=== PATIENT | male | born 1990 | race Two or more races ===

== ENCOUNTER 2022-07-24 16:34 | Observation (INO) ==
--- NOTE | 2022-07-24 17:16 | DR.GENAD ---
HPI Time Seen Time Seen by Provider: 07/24/22 17:16 PCP Primary Care Physician: quinton Complaint/Symptoms Chief Complaint:: PT STATES HE IS HAVING PAIN IN THE RUQ TO MID ABDOMEN. STARTED AT 6AM. PAIN FEELS LIKE A CRAMP AND IT IS VERY STRONG. PT LAST BM WAS TODAY AND VOMITTED ALSO. Mode of Arrival Mode of Arrival: Ambulatory Timing Onset of Chief Complaint: 07/24/22 PMH PMH Past Medical History: No Past Surgical History: Yes Surgical History: Appendectomy Family History History of Family Medical Conditions: No Social History Does patient currently use any type of tobacco product: No Have you used tobacco products in the last 12 months: No Type of Tobacco Use: None Does any household member use tobacco: No Alcohol Use: Rarely Do you use any recreational Drugs:: No Lives With: Alone Lives Where: Home Infectious screening In the last 2 months have you had wt loss of >10#?: NO Have you had fever, night sweats or hemotysis?: No Have you traveled outside the country in the last 6 months?: No Isolation: Standard PE Vital Signs Vitals: Temperature 98.6 F Pulse Rate 76 Respiratory Rate 20 Blood Pressure 131/80 O2 Sat by Pulse Oximetry 99 ROR Labs Reviewed Result Diagrams: 07/24/22 17:28 07/24/22 17:28 Laboratory: WBC 7.3 X10^3/uL (3.6-10.0) 07/24/22 17:28 RBC 4.92 X10^6/uL (4.7-6.0) 07/24/22 17:28 Hgb 15.1 g/dL (13.5-18.0) 07/24/22 17:28 Hct 44.3 % (42.0-54.0) 07/24/22 17:28 MCV 90.0 fL (80.0-100.0) 07/24/22 17:28 MCH 30.7 pg (27.0-34.0) 07/24/22 17:28 MCHC 34.1 g/dL (33.0-35.0) 07/24/22 17:28 RDW 13.7 % (11.6-16.5) 07/24/22 17:28 Plt Count 241 X10^3/uL (150.0-450.0) 07/24/22 17:28 MPV 7.6 fL (7.4-11.0) 07/24/22 17: Neut % (Auto) 64.4 % (42.0-75.0) 07/24/22: Lymph % (Auto) 23.3 % (21.0-51.0) 07/24/22: [place] % (Auto) 10.2 % (0.0-13.0) 07/24/22: Eos % (Auto) 0.6 % (0.9-2.9) L 07/24/22 17: Baso % (Auto) 1.5 % (0.2-1.0) H 07/24/22: Neut # (Auto) 4.7 x10^3/uL (2.2-4.8) 07/24/22: Lymph # (Auto) 1.7 X10^3/uL (1.3-2.9) 07/24/22: [place] # (Auto) 0.7 x10^3/uL (0.3-0.8) 07/24/22 17: Eos # (Auto) 0.0 x10^3/uL (0.0-0.2) 07/24/22: Baso # (Auto) 0.1 X10^3/uL (0.0-0.1) 07/24/22: Absolute Nucleated RBC 0.0 /100WBC 07/24/22 17: Sodium 139 mmol/L (136-145) 07/24/22 17: Corrected Sodium TNP 07/24/22: Potassium 3.2 mmol/L (3.5-5.1) L 07/24/22: Chloride 101 mmol/L (98-107) 07/24/22: Carbon Dioxide 27.1 mmol/L (21-32) 07/24/22: BUN 6 mg/dL (7-18) L 07/24/22 17: Creatinine 0.89 mg/dL (0.70-1.30) 07/24/22 17: Est GFR (MDRD) Af Amer > 60 (>60) 07/24/22 17: Est GFR (MDRD) Non-Af > 60 (>60) 07/24/22 17:28 Glucose 107 mg/dL (65-99) H 07/24/22 17:28 Calcium 8.0 mg/dL (8.5-10.1) L 07/24/22 17:28 Corrected Calcium TNP 07/24/22 17:28 Total Bilirubin 0.30 mg/dL (0.2-1.0) 07/24/22 17:28 AST 24 Units/L (15-37) 07/24/22 17:28 ALT 30 Units/L (12-78) 07/24/22 17:28 Alkaline Phosphatase 53 Units/L (46-116) 07/24/22 17:28 Total Protein 7.4 g/dL (6.4-8.2) 07/24/22 17:28 Albumin 3.7 g/dL (3.4-5.0) 07/24/22 17:28 Globulin 3.7 g/dL (2.5-4.5) 07/24/22 17:28 Albumin/Globulin Ratio 1.0 Ratio (1.1-2.1) L 07/24/22 17:28 Amylase 35 Units/L (25-115) 07/24/22 17:28 Lipase 100 Units/L (73-393) 07/24/22 17:28 Specimen Type Clean catch urine 07/24/22 18:39 Urine Color Yellow (YELLOW) 07/24/22 18:39 Urine Appearance Clear (CLEAR) 07/24/22 18:39 Urine pH 6.0 (5.0 - 8.0) 07/24/22 18:39 Ur Specific [place] 1.025 (1.000-1.030) 07/24/22 18:39 Urine Protein 2+ (NEGATIVE) 07/24/22 18:39 Urine Glucose (UA) Negative (NEGATIVE) 07/24/22 18:39 Urine Ketones 3+ (NEGATIVE) 07/24/22 18:39 Urine Blood 1+ (NEGATIVE) 07/24/22 18:39 Urine Nitrite Negative (NEGATIVE) 07/24/22 18:39 Urine Bilirubin Negative (NEGATIVE) 07/24/22 18:39 Urine Urobilinogen 1+ (NORMAL) 07/24/22 18:39 Ur Leukocyte Esterase Negative (NEGATIVE) 07/24/22 18:39 Urine RBC 0-2 /HPF (0-3) 07/24/22 18:39 Urine WBC 0-2 /HPF (0-5) 07/24/22 18:39 Ur Squamous Epith Cells Rare /HPF (NEGATIVE) 07/24/22 18:39 Urine Bacteria Negative /HPF (NEGATIVE) 07/24/22 18:39 Urine Mucus Moderate /HPF (NEGATIVE) 07/24/22 18:39 Ur Culture Indicated? No/not indicated 07/24/22 18:39 Opioid Opioid Risk Tool Total: 0 Total Score Risk Category: Low Risk Copyright: Trent PAN predicting aberrant behaviors Discharge Plan Diagnosis Discharge Problem: Gall bladder disease, Abdominal pain, Hypokalemia, Pneumonia Discharge Plan Patient Disposition: ADMITTED INPATIENT Condition: Stable Prescription drug monitoring program results: PDMP was not reviewed Discharge Comment: RETURN TO ER IF WORSE. Orders to Discharge Patient Discharge Orders: Discharge (Routine); Ordered 07/27/22 Ordered By: Balwinder Mccarthy
[2022-07-24] MEDS ORDERED: NS 1,000 ML IV 1,000 ML IV ONE (17:19)
[2022-07-24] MEDS ORDERED: ZOFRAN INJ 4 MG VIAL IVP ONE (17:19)
[2022-07-24] MEDS ORDERED: ZOFRAN INJ 4 MG VIAL ONE (17:20)
[2022-07-24] MEDS ORDERED: NS 1,000 ML IV 1,000 ML ONE (17:21)
[2022-07-24] MEDS ORDERED: PEPCID 20 MG VIAL 20 MG in NS 50 ML IV 50 ML IV ONE (17:24)
[2022-07-24 17:37] LABS: BASOPHILS # (AUTO) 0.1 X10^3/uL (0.0-0.1); BASOPHILS % (AUTO) 1.5 % (0.2-1.0); EOSINOPHILS % (AUTO) 0.6 % (0.9-2.9); HEMATOCRIT 44.3 % (42.0-54.0); HEMOGLOBIN 15.1 g/dL (13.5-18.0); LYMPHOCYTES # (AUTO) 1.7 X10^3/uL (1.3-2.9); LYMPHOCYTES % (AUTO) 23.3 % (21.0-51.0); MEAN CORPUSCULAR HEMOGLOBIN 30.7 pg (27.0-34.0); MEAN CORPUSCULAR HGB CONC 34.1 g/dL (33.0-35.0); MEAN PLATELET VOLUME 7.6 fL (7.4-11.0); MONOCYTES # (AUTO) 0.7 x10^3/uL (0.3-0.8); MONOCYTES % (AUTO) 10.2 % (0.0-13.0); NEUTROPHILS # (AUTO) 4.7 x10^3/uL (2.2-4.8); NEUTROPHILS % (AUTO) 64.4 % (42.0-75.0); RED BLOOD COUNT 4.92 X10^6/uL (4.7-6.0); RED CELL DISTRIBUTION WIDTH 13.7 % (11.6-16.5); WHITE BLOOD COUNT 7.3 X10^3/uL (3.6-10.0)
[2022-07-24] MEDS ORDERED: PEPCID 20 MG VIAL ONE (17:37)
[2022-07-24] MEDS ORDERED: NS 50 ML IV 50 ML IV ONE (17:37)
[2022-07-24 17:49] LABS: ALANINE AMINOTRANSFERASE 30 Units/L (12-78); ALBUMIN 3.7 g/dL (3.4-5.0); ALKALINE PHOSPHATASE 53 Units/L (46-116); ASPARTATE AMINO TRANSFERASE 24 Units/L (15-37); BLOOD UREA NITROGEN 6 mg/dL (7-18); CARBON DIOXIDE 27.1 mmol/L (21-32); CHLORIDE 101 mmol/L (98-107); CREATININE 0.89 mg/dL (0.70-1.30); SODIUM 139 mmol/L (136-145); TOTAL PROTEIN 7.4 g/dL (6.4-8.2); eGFR NON BLACK RACES > 60 (>60)
[2022-07-24] MEDS ORDERED: MORPHINE SULFATE INJ 4 MG IVP ONE (18:02)
[2022-07-24] MEDS ORDERED: MORPHINE SULFATE INJ 4 MG ONE (18:04)
[2022-07-24] MEDS ORDERED: PHENERGAN INJ 25 MG IM ONE ×2 (18:09→18:10)
[2022-07-24 19:03] LABS: BILIRUBIN,URINE NEGATIVE (NEGATIVE); BLOOD/HEMOGLOBIN,URINE 1+ (NEGATIVE); GLUCOSE, URINE NEGATIVE (NEGATIVE); KETONES,URINE 3+ (NEGATIVE); LEUKOCYTE ESTERASE ,URINE NEGATIVE (NEGATIVE); NITRITES,URINE NEGATIVE (NEGATIVE); PROTEIN,URINE 2+ (NEGATIVE); UROBILINOGEN,URINE 1+ (NORMAL)
[2022-07-24 19:10] LABS: APPEARANCE,URINE CLEAR (CLEAR); COLOR,URINE YELLOW (YELLOW)
[2022-07-24 19:11] LABS: BACTERIA,URINE NEGATIVE /HPF (NEGATIVE); RBC,URINE 0-2 /HPF (0-3); SQUAMOUS EPITHELIAL CELL,UR RARE /HPF (NEGATIVE)
[2022-07-24] MEDS ORDERED: LEVSIN/MAALOX/LIDOC VISC ONE (19:20)
[2022-07-24] MEDS ORDERED: LEVSIN/MAALOX/LIDOC VISC PO ONE (19:21)
[2022-07-24 19:31] LABS: AMYLASE 35 Units/L (25-115); LIPASE 100 Units/L (73-393)
--- NOTE | 2022-07-24 20:41 | CT ---
EXAM: CT ABDOMEN AND PELVIS WITHOUT INTRAVENOUS CONTRASTHISTORY: Right upper quadrant to midline abdominal pain. Vomiting.TECHNIQUE: Spiral axial CT images are obtained through the abdomen and pelvis without the administration of intravenous contrast. Additional coronal and sagittal reformatted images are reconstructed.DOSIMETRY: Total DLP 234.72 mGycm; CTDI 5.28 mGyCOMPARISON: None available.FINDINGS:GASTROINTESTINAL TRACT: There is no evidence for hiatal hernia, bowel herniation, bowel obstruction, appendicitis, colitis or diverticulitis.GENITOURINARY SYSTEM: The kidneys are unremarkable. There is no ureteral calculus or stigmata of obstructive uropathy. The urinary bladder, seminal vesicles, prostate gland appear grossly unremarkable for a non-dedicated exam.BILIARY SYSTEM: Dilated gallbladder with questionable gallbladder wall thickening and pericholecystic stranding; nonspecific finding which may represent sequela of NPO status and/or cholecystitis in the appropriate clinical setting. Consider follow-up evaluation with ultrasound and/or HIDA scan to rule out acute gallbladder disease if clinically warranted.CT ABDOMEN: The liver, spleen, pancreas, adrenal glands, aorta, and inferior vena cava are within normal limits for a noncontrast CT scan. There is no intra-abdominal or retroperitoneal lymphadenopathy, free fluid, or free air seen. No abdominal herniation is noted.CT PELVIS: No pelvic sidewall or inguinal lymphadenopathy is seen. No inguinal herniation is noted. No free fluid or free air is seen.BONES AND JOINTS: The visualized bony structures are within normal limits.LUNG BASES: There is mild patchy groundglass parenchymal infiltrate in the posterior left upper lobe (partially imaged) in keeping with mild acute pneumonia in the appropriate clinical setting. Axial image 1?8, series 3, lung windows. The lung bases are otherwise clear.IMPRESSION:1. Dilated gallbladder with questionable gallbladder wall thickening and pericholecystic stranding; nonspecific finding which may represent sequela of NPO status and/or cholecystitis in the appropriate clinical setting. Consider follow-up evaluation with ultrasound and/or HIDA scan to rule out acute gallbladder disease if clinically warranted.2. No evidence for renal stone disease or obstructive uropathy.3. No evidence for acute appendicitis, bowel herniation/obstruction, colitis or diverticulitis seen.4. No free fluid, free air, mass lesions, or lymphadenopathy seen.5. Mild patchy groundglass parenchymal infiltrate in the posterior left upper lobe (partially imaged) in keeping with mild acute pneumonia in the appropriate clinical setting. Axial image 1?8, series 3, lung windows.Electronically signed by: Cam Elias (Jul 24, 2022 20:40:07)
[2022-07-24] MEDS ORDERED: TORADOL 30 MG VIAL IVP ONE (21:26)
[2022-07-24] MEDS ORDERED: TORADOL 30 MG VIAL ONE (21:37)
[2022-07-24] MEDS ORDERED: K-DUR TAB 20 MEQ PO ONE ×2 (21:37→21:39)
[2022-07-24 23:48] VITALS: BMI 32.8
[2022-07-25] MEDS: LR 1,000 ML IV 1,000 ML IV SCH ×4 (00:35→19:41)
[2022-07-25] MEDS: XOPENEX 1.25 MG/3 ML NEBULE NEB SCH ×4 (09:19→21:07)
--- NOTE | 2022-07-25 09:49 | DR.H&P ---
H&P History & Physical for Day of: H&P Date: 07/24/22 Chief Complaint Chief Complaint: acute onset RUQ pain Allergies Allergies Allergy/AdvReac Type Severity Reaction Status Date / Time Penicillins Allergy Verified 07/24/22 18:09 History of Present Illness History of Present Illness: 32 yo male, non Finnish speaking , with acute onset of RUQ pain. Evaluated in the ER and had CT of abdomen showing distended gallbladder , with question of gallbladder wall thickening and question of pericholecystic fluid . Past Surgical History Surgical History: Appendectomy Social History Does patient currently use any type of tobacco product: Yes Have you used tobacco products in the last 12 months: No Type of Tobacco Use: Cigars Does any household member use tobacco: No Alcohol Use: Occasionally Drug Use: None Medications Home Medications: Penicillins Allergy (Verified 07/24/22 18:09) New Prescriptions ciprofloxacin HCl 500 mg tablet (Cipro) 500 mg PO BID #20 tabs 07/24/22 [Rx] ketorolac 10 mg tablet 10 mg PO QID 5 days #20 tabs 07/24/22 [Rx] ondansetron 4 mg disintegrating tablet 4 mg PO Q8H PRN nausea and vomiting #15 tabs 07/24/22 [Rx] Labs Result Diagrams: 07/24/22 17:28 07/24/22 17:28 Labs: Laboratory WBC 7.3 X10^3/uL (3.6-10.0) 07/24/22 17:28 RBC 4.92 X10^6/uL (4.7-6.0) 07/24/22 17:28 Hgb 15.1 g/dL (13.5-18.0) 07/24/22 17:28 Hct 44.3 % (42.0-54.0) 07/24/22 17:28 MCV 90.0 fL (80.0-100.0) 07/24/22 17:28 MCH 30.7 pg (27.0-34.0) 07/24/22 17: MCHC 34.1 g/dL (33.0-35.0) 07/24/22 17:28 RDW 13.7 % (11.6-16.5) 07/24/22 17:28 Plt Count 241 X10^3/uL (150.0-450.0) 07/24/22: MPV 7.6 fL (7.4-11.0) 07/24/22: Neut % (Auto) 64.4 % (42.0-75.0) 07/24/22: Lymph % (Auto) 23.3 % (21.0-51.0) 07/24/22: [place] % (Auto) 10.2 % (0.0-13.0) 07/24/22: Eos % (Auto) 0.6 % (0.9-2.9) L 07/24/22: Baso % (Auto) 1.5 % (0.2-1.0) H 07/24/22: Neut # (Auto) 4.7 x10^3/uL (2.2-4.8) 07/24/22 Lymph # (Auto) 1.7 X10^3/uL (1.3-2.9) 07/24/22: [place] # (Auto) 0.7 x10^3/uL (0.3-0.8) 07/24/22: Eos # (Auto) 0.0 x10^3/uL (0.0-0.2) 07/24/22: Baso # (Auto) 0.1 X10^3/uL (0.0-0.1) 07/24/22: Absolute Nucleated RBC 0.0 /100WBC 07/24/22: Sodium 139 mmol/L (136-145) 07/24/22: Corrected Sodium TNP 07/24/22: Potassium 3.2 mmol/L (3.5-5.1) L 07/24/22: Chloride 101 mmol/L (98-107) 07/24/22: Carbon Dioxide 27.1 mmol/L (21-32) 07/24/22: BUN 6 mg/dL (7-18) L 07/24/22: Creatinine 0.89 mg/dL (0.70-1.30) 07/24/22: Est GFR (MDRD) Af Amer > 60 (>60) 07/24/22: Est GFR (MDRD) Non-Af > 60 (>60) 07/24/22 17:28 Glucose 107 mg/dL (65-99) H 07/24/22 17:28 Calcium 8.0 mg/dL (8.5-10.1) L 07/24/22 17:28 Corrected Calcium TNP 07/24/22 17:28 Total Bilirubin 0.30 mg/dL (0.2-1.0) 07/24/22 17:28 AST 24 Units/L (15-37) 07/24/22 17:28 ALT 30 Units/L (12-78) 07/24/22 17:28 Alkaline Phosphatase 53 Units/L (46-116) 07/24/22 17:28 Total Protein 7.4 g/dL (6.4-8.2) 07/24/22 17:28 Albumin 3.7 g/dL (3.4-5.0) 07/24/22 17:28 Globulin 3.7 g/dL (2.5-4.5) 07/24/22 17:28 Albumin/Globulin Ratio 1.0 Ratio (1.1-2.1) L 07/24/22 17:28 Amylase 35 Units/L (25-115) 07/24/22 17:28 Lipase 100 Units/L (73-393) 07/24/22 17:28 Specimen Type Clean catch urine 07/24/22 18:39 Urine Color Yellow (YELLOW) 07/24/22 18:39 Urine Appearance Clear (CLEAR) 07/24/22 18:39 Urine pH 6.0 (5.0 - 8.0) 07/24/22 18:39 Ur Specific [place] 1.025 (1.000-1.030) 07/24/22 18:39 Urine Protein 2+ (NEGATIVE) 07/24/22 18:39 Urine Glucose (UA) Negative (NEGATIVE) 07/24/22 18:39 Urine Ketones 3+ (NEGATIVE) 07/24/22 18:39 Urine Blood 1+ (NEGATIVE) 07/24/22 18:39 Urine Nitrite Negative (NEGATIVE) 07/24/22 18:39 Urine Bilirubin Negative (NEGATIVE) 07/24/22 18:39 Urine Urobilinogen 1+ (NORMAL) 07/24/22 18:39 Ur Leukocyte Esterase Negative (NEGATIVE) 07/24/22 18:39 Urine RBC 0-2 /HPF (0-3) 07/24/22 18:39 Urine WBC 0-2 /HPF (0-5) 07/24/22 18:39 Ur Squamous Epith Cells Rare /HPF (NEGATIVE) 07/24/22 18:39 Urine Bacteria Negative /HPF (NEGATIVE) 07/24/22 18:39 Urine Mucus Moderate /HPF (NEGATIVE) 07/24/22 18:39 Ur Culture Indicated? No/not indicated 07/24/22 18:39 Review of Systems Constitutional: See HPI Eyes: No Symptoms Reported ENT: No Symptoms Reported Respiratory: No Symptoms Reported Cardiovascular: No Symptoms Reported Gastrointestinal: See HPI Genitourinary: No Symptoms Reported Musculoskeletal: No Symptoms Reported Skin: No Symptoms Reported Neurological: No Symptoms Reported Physical Exam Vital Signs: Temperature 98.7 F Pulse Rate [Left Radial] 60 Pulse Rate 76 Respiratory Rate 20 Blood Pressure [Left Arm] 119/62 Blood Pressure 131/80 O2 Sat by Pulse Oximetry 99 Oriented: Normal, Time, Person and Place Eyes: Normal Ear: Normal Nose: Normal Throat: Normal Respiratory: Clear Throughout Cardiovascular: Normal : Normal Auscultation: Bowel Sounds: Normal Palpation: Normal Tenderness: RUQ Skin: Normal Musculoskeletal: Normal Psychiatric: Normal Mood Description: Anxious Affect: Normal Speech Pattern: Clear (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 (2) Abdominal pain: Status: Acute Review H&P Reviewed: Yes Patient was examined?: Yes
[2022-07-25] MEDS: CIPRO IV 400 MG PREMIX* 400 MG/200 ML IV.SOLN. IV SCH ×2 (10:03→20:29)
[2022-07-25] MEDS ORDERED: PROTONIX TAB 40 MG PO ONE (20:07)
--- NOTE | 2022-07-25 20:07 | NOTE.SOAP ---
Soap Note Note for Day of Date of Exam: 07/25/22 Subjective Data Subjective Data: Patient with acute onset RUQ pain. CT consistent with cholecystitis. Feels better today Objective Data Temperature: 97.7 F Pulse Rate: 65 Respiratory Rate: 20 Blood Pressure: 101/50 O2 Sat by Pulse Oximetry: 100 Objective Data: Abdomen much less tender today Assessment Assessment: cholecystitis Plan Plan: laparoscopic cholecystectomy tomorrow. Procedure and risks discussed using an full time staff interpreter. Her agrees to proceed.
[2022-07-26] MEDS: LR 1,000 ML IV 1,000 ML IV SCH ×4 (03:14→17:18)
[2022-07-26] MEDS: XOPENEX 1.25 MG/3 ML NEBULE NEB SCH ×4 (08:38→17:00)
[2022-07-26] MEDS ORDERED: VERSED ONE (13:52)
[2022-07-26] MEDS ORDERED: FENTANYL VIAL INJ 100 mcg ONE (13:52)
[2022-07-26] MEDS ORDERED: CIPRO IV 400 MG PREMIX* 400 MG/200 ML IV.SOLN. IV ONE (13:52)
[2022-07-26] MEDS ORDERED: LR 1,000 ML IV 1,000 ML IV ONE (13:52)
[2022-07-26] MEDS ORDERED: PEPCID 20 MG VIAL ONE (13:53)
[2022-07-26] MEDS ORDERED: ZOFRAN INJ 4 MG VIAL ONE (13:53)
[2022-07-26] MEDS ORDERED: REGLAN INJ 10 MG VIAL ONE (13:53)
[2022-07-26] MEDS ORDERED: BRIDION ONE (13:54)
[2022-07-26] MEDS ORDERED: DIPRIVAN VIAL 20 ML ONE (13:54)
[2022-07-26] MEDS ORDERED: OFIRMEV IV 1000 MG VIAL 1,000 MG/100 ML VIAL IV ONE (13:54)
[2022-07-26] MEDS ORDERED: ZEMURON 100 MG VIAL ONE (13:54)
[2022-07-26] MEDS ORDERED: TORADOL 30 MG VIAL ONE (13:54)
[2022-07-26] MEDS ORDERED: XYLOCAINE 2 % (PLAIN) ONE (14:03)
[2022-07-26] MEDS ORDERED: BACTROBAN TOPICAL OINT ONE (14:03)
[2022-07-26] MEDS ORDERED: NS 1,000 ML IV 0 ML ONE (14:03)
[2022-07-26] MEDS ORDERED: SUPRANE ONE ×2 (14:21→15:50)
[2022-07-26] MEDS ORDERED: MARCAINE/EPINEPHRINE ONE (14:42)
--- NOTE | 2022-07-26 15:32 | OR.IMMED ---
IMMEDIATE POST-OP NOTE Immediate Post-Op Note Pre-Op Diagnosis: cholecystitis Post-Op Diagnosis: same Procedure: laparoscopic cholecystectomy Description of Procedure: see operative summary Surgeon/Powdered Metal Supervisor: Shari Findings: cholecystitis Estimated Blood Loss: < 50 cc Complications: none Progress Notes: Return to floor with JEANETTE drain in place, change IV Cipro to po Cipro, resume diet. probably discharge home tomorrow. Final Diagnosis: as above
[2022-07-26] MEDS ORDERED: BENADRYL INJ 50 MG VIAL IVP PRN (15:55)
[2022-07-26] MEDS ORDERED: DILAUDID INJ IVP PRN (15:55)
[2022-07-26] MEDS ORDERED: ZOFRAN INJ 4 MG VIAL IVP PRN (15:55)
[2022-07-26] MEDS ORDERED: REGLAN INJ 10 MG VIAL IVP PRN (15:55)
[2022-07-26] MEDS ORDERED: BARHEMSYS INJ IVP PRN (15:55)
[2022-07-26] MEDS: DILAUDID INJ IVP PRN ×2 (16:46→21:05)
[2022-07-26] MEDS: K-DUR TAB 20 MEQ PO PRN (20:55)
[2022-07-26] MEDS: CIPRO TAB 500 MG PO SCH (20:55)
[2022-07-27] MEDS: LR 1,000 ML IV 1,000 ML IV SCH ×2 (01:27→12:56)
[2022-07-27] MEDS ORDERED: ZOFRAN INJ 4 MG VIAL IVP PRN (04:14)
[2022-07-27] MEDS: DILAUDID INJ IVP PRN (04:30)
[2022-07-27] MEDS: CIPRO TAB 500 MG PO SCH (08:45)
[2022-07-27] MEDS: K-DUR TAB 20 MEQ PO PRN (09:15)
[2022-07-27] MEDS: XOPENEX 1.25 MG/3 ML NEBULE NEB SCH ×2 (09:28→13:14)
--- NOTE | 2022-07-27 11:19 | W.DIS.FURT ---
Summary of Discharge Discharge Summary of Date Date of Exam: 07/27/22 Admission Date Date of Admission: 07/24/22 Admission Diagnosis Patient Problems (Updated 07/24/22 @ 21:40 by LYUBOV CAMARILLO) Gall bladder disease (Acute) K82.9 Abdominal pain (Acute) R10.9 Hypokalemia (Acute) E87.6 Pneumonia (Acute) J18.9 Hospital Course: 32 year old male who presented to the emergency room on the date of admission ,July 24, complaining of right upper quadrant pain. He was evaluated in the emergency room and CT scan was consistent with cholecystitis with gallbladder wall thickening and question of sanjuanita- cholecystic fluid . he was started on IV antibiotics. On July 26 he underwent uncomplicated laparoscopic cholecystectomy. He had evidence of cholecystitis. He has a Win Lai drain in place. He be discharged home with the drain in place. He will be instructed how to care for the drain . He will be on Percocet 5 mg tablets, one every six hours PRN pain and Cipro, one capsule BID. He will follow up with me in one week. Vital Signs: Vital Signs (72 hours) 07/25/22 20:07 07/24/22 16:38 07/24/22 18:14 Temperature 97.7 F 98.6 F Pulse Rate 65 76 Pulse Rate [Left Radial] Respiratory Rate 20 22 20 Blood Pressure 101/50 131/80 Blood Pressure [Left Arm] Blood Pressure [Right Arm] O2 Sat by Pulse Oximetry 100 99 Oxygen Delivery Method Room Air 07/24/22 19:21 07/24/22 21:43 07/24/22 18:44 Temperature Pulse Rate Pulse Rate [Left Radial] Respiratory Rate 20 20 20 Blood Pressure Blood Pressure [Left Arm] Blood Pressure [Right Arm] O2 Sat by Pulse Oximetry Oxygen Delivery Method 07/24/22 20:21 07/24/22 23:48 07/24/22 22:54 Temperature 98.7 F Pulse Rate Pulse Rate [Left Radial] 60 Respiratory Rate 20 20 Blood Pressure Blood Pressure [Left Arm] 119/62 Blood Pressure [Right Arm] O2 Sat by Pulse Oximetry Oxygen Delivery Method Room Air Room Air 07/25/22 04:00 07/25/22 08:00 07/25/22 07:00 Temperature 98.6 F 98.2 F Pulse Rate Pulse Rate [Left Radial] 55 L 56 L Respiratory Rate 18 18 Blood Pressure Blood Pressure [Left Arm] 106/55 97/56 Blood Pressure [Right Arm] O2 Sat by Pulse Oximetry 100 Oxygen Delivery Method Room Air Room Air Room Air 07/25/22 09:19 07/25/22 12:00 07/25/22 16:00 Temperature 97.8 F 97.8 F Pulse Rate 65 Pulse Rate [Left Radial] 64 66 Respiratory Rate 18 18 Blood Pressure Blood Pressure [Left Arm] 114/57 104/55 Blood Pressure [Right Arm] O2 Sat by Pulse Oximetry 94 L 99 100 Oxygen Delivery Method Room Air Room Air 07/25/22 18:58 07/25/22 19:53 07/25/22 21:07 Temperature 97.7 F Pulse Rate 70 Pulse Rate [Left Radial] 65 Respiratory Rate 20 Blood Pressure Blood Pressure [Left Arm] 101/50 Blood Pressure [Right Arm] O2 Sat by Pulse Oximetry 100 98 Oxygen Delivery Method Room Air Room Air 07/25/22 23:28 07/26/22 04:00 07/26/22 07:00 Temperature 99.0 F 97.9 F Pulse Rate Pulse Rate [Left Radial] 67 55 L Respiratory Rate 20 20 Blood Pressure Blood Pressure [Left Arm] 98/50 98/53 Blood Pressure [Right Arm] O2 Sat by Pulse Oximetry 98 98 Oxygen Delivery Method Room Air Room Air Room Air 07/26/22 08:00 07/26/22 08:38 07/26/22 12:00 Temperature 98.2 F 97.9 F Pulse Rate 54 L Pulse Rate [Left Radial] 58 L 57 L Respiratory Rate 20 20 Blood Pressure Blood Pressure [Left Arm] 106/51 111/55 Blood Pressure [Right Arm] O2 Sat by Pulse Oximetry 98 95 99 Oxygen Delivery Method Room Air Room Air 07/26/22 14:21 07/26/22 15:34 07/26/22 15:39 Temperature 97.5 F L Pulse Rate 80 79 Pulse Rate [Left Radial] Respiratory Rate 20 18 18 Blood Pressure 129/66 126/68 Blood Pressure [Left Arm] Blood Pressure [Right Arm] O2 Sat by Pulse Oximetry 100 100 Oxygen Delivery Method Aerosol Face Tent Aerosol Face Tent 07/26/22 15:54 07/26/22 15:59 07/26/22 15:44 Temperature Pulse Rate 75 77 79 Pulse Rate [Left Radial] Respiratory Rate 18 18 18 Blood Pressure 121/57 112/60 141/88 Blood Pressure [Left Arm] Blood Pressure [Right Arm] O2 Sat by Pulse Oximetry 100 100 100 Oxygen Delivery Method Room Air Room Air Aerosol Face Tent 07/26/22 15:49 07/26/22 16:04 07/26/22 16:46 Temperature Pulse Rate 78 78 Pulse Rate [Left Radial] Respiratory Rate 18 18 20 Blood Pressure 119/55 111/62 Blood Pressure [Left Arm] Blood Pressure [Right Arm] O2 Sat by Pulse Oximetry 100 96 Oxygen Delivery Method Aerosol Face Tent Room Air 07/26/22 16:10 07/26/22 16:25 07/26/22 16:40 Temperature 98.0 F 98.0 F 98.3 F Pulse Rate Pulse Rate [Left Radial] 73 71 67 Respiratory Rate 20 20 20 Blood Pressure Blood Pressure [Left Arm] 109/60 113/64 116/68 Blood Pressure [Right Arm] O2 Sat by Pulse Oximetry 94 L 95 96 Oxygen Delivery Method Room Air Room Air Room Air 07/26/22 16:55 07/26/22 17:10 07/26/22 17:16 Temperature 98.3 F 98.3 F Pulse Rate Pulse Rate [Left Radial] 65 70 Respiratory Rate 20 20 20 Blood Pressure Blood Pressure [Left Arm] 109/59 114/58 Blood Pressure [Right Arm] O2 Sat by Pulse Oximetry 91 L 92 L Oxygen Delivery Method Room Air Room Air 07/26/22 18:10 07/26/22 19:00 07/26/22 19:10 Temperature 98.0 F 98.9 F Pulse Rate Pulse Rate [Left Radial] 72 62 Respiratory Rate 20 20 Blood Pressure Blood Pressure [Left Arm] 110/64 110/55 Blood Pressure [Right Arm] O2 Sat by Pulse Oximetry 92 L 98 Oxygen Delivery Method Room Air Room Air Room Air 07/26/22 20:10 07/26/22 21:04 07/26/22 21:05 Temperature 98.5 F Pulse Rate 59 L Pulse Rate [Left Radial] 62 Respiratory Rate 20 18 Blood Pressure Blood Pressure [Left Arm] 119/71 Blood Pressure [Right Arm] O2 Sat by Pulse Oximetry 100 98 Oxygen Delivery Method Room Air 07/26/22 21:35 07/26/22 21:10 07/26/22 23:49 Temperature 98.1 F 98.3 F Pulse Rate Pulse Rate [Left Radial] 75 62 Respiratory Rate 18 20 22 Blood Pressure Blood Pressure [Left Arm] 117/58 122/69 Blood Pressure [Right Arm] O2 Sat by Pulse Oximetry 98 97 Oxygen Delivery Method Room Air Room Air 07/27/22 04:30 07/27/22 04:00 07/27/22 05:00 Temperature 98.0 F Pulse Rate Pulse Rate [Left Radial] 60 Respiratory Rate 18 18 18 Blood Pressure Blood Pressure [Left Arm] Blood Pressure [Right Arm] 122/78 O2 Sat by Pulse Oximetry 99 Oxygen Delivery Method Room Air 07/27/22 07:00 07/27/22 07:49 07/27/22 09:57 Temperature 97.5 F L Pulse Rate Pulse Rate [Left Radial] 59 L Respiratory Rate 20 Blood Pressure Blood Pressure [Left Arm] Blood Pressure [Right Arm] 110/56 O2 Sat by Pulse Oximetry 97 Oxygen Delivery Method Room Air Room Air Room Air 07/27/22 09:57 Temperature Pulse Rate 80 Pulse Rate [Left Radial] Respiratory Rate Blood Pressure Blood Pressure [Left Arm] Blood Pressure [Right Arm] O2 Sat by Pulse Oximetry 97 Oxygen Delivery Method Labs: Laboratory Last Values WBC 7.3 X10^3/uL (3.6-10.0) 07/24/22 17:28 RBC 4.92 X10^6/uL (4.7-6.0) 07/24/22 17:28 Hgb 15.1 g/dL (13.5-18.0) 07/24/22 17:28 Hct 44.3 % (42.0-54.0) 07/24/22 17:28 MCV 90.0 fL (80.0-100.0) 07/24/22 17:28 MCH 30.7 pg (27.0-34.0) 07/24/22 17:28 MCHC 34.1 g/dL (33.0-35.0) 07/24/22 17:28 RDW 13.7 % (11.6-16.5) 07/24/22 17:28 Plt Count 241 X10^3/uL (150.0-450.0) 07/24/22 17:28 MPV 7.6 fL (7.4-11.0) 07/24/22 17:28 Neut % (Auto) 64.4 % (42.0-75.0) 07/24/22 17:28 Lymph % (Auto) 23.3 % (21.0-51.0) 07/24/22 17: Hale % (Auto) 10.2 % (0.0-13.0) 07/24/22 17: Eos % (Auto) 0.6 % (0.9-2.9) L 07/24/22 17: Baso % (Auto) 1.5 % (0.2-1.0) H 07/24/22 17: Neut # (Auto) 4.7 x10^3/uL (2.2-4.8) 07/24/22: Lymph # (Auto) 1.7 X10^3/uL (1.3-2.9) 07/24/22: Hale # (Auto) 0.7 x10^3/uL (0.3-0.8) 07/24/22: Eos # (Auto) 0.0 x10^3/uL (0.0-0.2) 07/24/22: Baso # (Auto) 0.1 X10^3/uL (0.0-0.1) 07/24/22 17: Absolute Nucleated RBC 0.0 /100WBC 07/24/22 17: Sodium 139 mmol/L (136-145) 07/24/22 17: Corrected Sodium TNP 07/24/22 17: Potassium 3.2 mmol/L (3.5-5.1) L 07/24/22 17: Chloride 101 mmol/L (98-107) 07/24/22 17: Carbon Dioxide 27.1 mmol/L (21-32) 07/24/22 17:28 BUN 6 mg/dL (7-18) L 07/24/22 17:28 Creatinine 0.89 mg/dL (0.70-1.30) 07/24/22 17:28 Est GFR (MDRD) Af Amer > 60 (>60) 07/24/22 17:28 Est GFR (MDRD) Non-Af > 60 (>60) 07/24/22 17:28 Glucose 107 mg/dL (65-99) H 07/24/22 17:28 Calcium 8.0 mg/dL (8.5-10.1) L 07/24/22 17:28 Corrected Calcium TNP 07/24/22 17:28 Total Bilirubin 0.30 mg/dL (0.2-1.0) 07/24/22 17:28 AST 24 Units/L (15-37) 07/24/22 17:28 ALT 30 Units/L (12-78) 07/24/22 17:28 Alkaline Phosphatase 53 Units/L (46-116) 07/24/22 17:28 Total Protein 7.4 g/dL (6.4-8.2) 07/24/22 17:28 Albumin 3.7 g/dL (3.4-5.0) 07/24/22 17:28 Globulin 3.7 g/dL (2.5-4.5) 07/24/22 17:28 Albumin/Globulin Ratio 1.0 Ratio (1.1-2.1) L 07/24/22 17:28 Amylase 35 Units/L (25-115) 07/24/22 17:28 Lipase 100 Units/L (73-393) 07/24/22 17:28 Specimen Type Clean catch urine 07/24/22 18:39 Urine Color Yellow (YELLOW) 07/24/22 18:39 Urine Appearance Clear (CLEAR) 07/24/22 18:39 Urine pH 6.0 (5.0 - 8.0) 07/24/22 18:39 Ur Specific [place] 1.025 (1.000-1.030) 07/24/22 18:39 Urine Protein 2+ (NEGATIVE) 07/24/22 18:39 Urine Glucose (UA) Negative (NEGATIVE) 07/24/22 18:39 Urine Ketones 3+ (NEGATIVE) 07/24/22 18:39 Urine Blood 1+ (NEGATIVE) 07/24/22 18:39 Urine Nitrite Negative (NEGATIVE) 07/24/22 18:39 Urine Bilirubin Negative (NEGATIVE) 07/24/22 18:39 Urine Urobilinogen 1+ (NORMAL) 07/24/22 18:39 Ur Leukocyte Esterase Negative (NEGATIVE) 07/24/22 18:39 Urine RBC 0-2 /HPF (0-3) 07/24/22 18:39 Urine WBC 0-2 /HPF (0-5) 07/24/22 18:39 Ur Squamous Epith Cells Rare /HPF (NEGATIVE) 07/24/22 18:39 Urine Bacteria Negative /HPF (NEGATIVE) 07/24/22 18:39 Urine Mucus Moderate /HPF (NEGATIVE) 07/24/22 18:39 Ur Culture Indicated? No/not indicated 07/24/22 18:39 SARS CoV-2 RNA Rapid TALI Negative (NEGATIVE) 07/26/22 15:39 Reason For Visit: ABDOMINAL PAIN, CHOLECYSTITIS, PNEUMONIA Discharge Diagnosis All Active Problems (Updated 07/24/22 @ 21:40 by LYUBOV CAMARILLO) Gall bladder disease (Acute) Abdominal pain (Acute) Hypokalemia (Acute) Pneumonia (Acute) Plan of Treatment: Continue with present treatment and follow up plan. Pt is to keep follow up appointment as instructed and take medications as ordered. Discharge Medications Discharge Medications: Penicillins Allergy (Verified 07/24/22 18:09) New Prescriptions ciprofloxacin HCl 500 mg tablet (Cipro) 500 mg PO BID #20 tabs 07/24/22 [Rx] ciprofloxacin HCl 500 mg tablet 500 mg PO BID #10 tabs 07/27/22 [Rx] oxycodone-acetaminophen 5 mg-325 mg tablet (Percocet) 1 tab PO Q6H PRN #20 tabs 07/27/22 [Rx] Discharge Disposition Assessment: see hospital course above Discharge Plan Discharge Plan Hospital Course: 32 year old male who presented to the emergency room on the date of admission ,July 24, complaining of right upper quadrant pain. He was evaluated in the emergency room and CT scan was consistent with cholecystitis with gallbladder wall thickening and question of sanjuanita- cholecystic fluid . he was started on IV antibiotics. On July 26 he underwent uncomplicated laparoscopic cholecystectomy. He had evidence of cholecystitis. He has a Win Lai drain in place. He be discharged home with the drain in place. He will be instructed how to care for the drain . He will be on Percocet 5 mg tablets, one every six hours PRN pain and Cipro, one capsule BID. He will follow up with me in one week. Patient Disposition: HOME, SELF-CARE Condition: Stable Health Concerns: Post Hospitalization: new medications and changes needed to prevent readmission or further decline. Pt educated and given instructions on all concerns. Plan of Treatment: Continue with present treatment and follow up plan. Pt is to keep follow up appointment as instructed and take medications as ordered. Assessment: see hospital course above Prescription drug monitoring program results: PDMP was not reviewed Prescriptions: New ciprofloxacin HCl [Cipro] 500 mg tablet 500 mg PO BID Qty: 20 0RF oxycodone-acetaminophen [Percocet] 5-325 mg tablet 1 tab PO Q6H MDD 4 PRNQty: 20 0RF ciprofloxacin HCl 500 mg Tablet 500 mg PO BID Qty: 10 0RF Orders to Discharge Patient Discharge Orders: Discharge (Routine); Ordered 07/27/22 Ordered By: Balwinder Mccarthy Follow ups/Referrals Follow ups/Referrals: Alex Lang [STAFF PHYSICIAN] - 2 days Balwinder Mccarthy [STAFF PHYSICIAN] - 08/04/22 1:30 pm Instructions Instructions: Abdominal Pain, Adult, Laparoscopic Cholecystectomy, Care After, Hypokalemia, Biliary Colic, Adult, Community-Acquired Pneumonia, Adult Stand Alone Forms: Excuse From Work or School
[2022-07-27 12:28] VITALS: BP 121/59
--- NOTE | 2022-07-30 12:30 | DR.OPNOTE ---
OP NOTE Pre-Op Diagnosis: cholecystitis Post-Op Diagnosis: same Procedure Date Date Of Procedure: 07/26/22 Procedure: PROCEDURE : Laparoscopic cholecystectomy NARRATIVE: Patient was was taken to operative suite and placed in the supine position. General endotracheal anesthesia induced and the entire abdomen was prepped and draped in sterile fashion. Time out for the procedure obtained . Curvilinear 3cm incision made below the umbilicus in the mid-line and dissection and carried down to the midline fascia. Holding sutures of 0-Vicryl placed on either side of the mid-line fascia and the fascia opened with a # 15 knife blade. The peritoneum grasped with a hemostat and opened with Metzenbaum scissors. Kyung cannula placed in the abdomen and secured with the holding sutures . The abdomen insufflated to 15 mm of mercury with carbon dioxide. Camera inserted through this port . Under direct vision two 5 mm trocars placed along the right costal margin and 5 mm trocar placed in the epigastrium. The gallbladder appeared to be inflamed . Gallbladder grasped at the fundus and the infundibulum. Dissection carried down into Calot's triangle identifying the cystic duct and the cystic artery, i.e. the critical view of safety. Both the cystic duct and cystic artery were divided between clips. The gallbladder dissected from liver bed with electrocautery . The gallbladder placed in a specimen bag and removed from the abdominal cavity . The abdomen was irrigated and suctioned free. Surgicel was placed in the gallbladder bed and a flat # 10 Win Lai drain placed in the gallbladder bed and brought out through the right lateral most trocar site. The drain secured to the skin with a 2-0 silk suture ligature. The fascia of the original incision was closed with interrupted 0 Vicryl sutures . The skin of all incisions closed with interrupted 3-o Vicryl sutures The patient was extubated and taken to the recovery room in good condition. Type of Anesthesia: General Anesthetic w/ETT Findings: cholecystitis Specimen/Pathology: gallbaldder Type of Fluids Used:: Lactated Ringers EBL: minmal Drains/Tubes Placed: Win Lai (x 1 in gallbladder bed) Complications:: none Needle/Sponge Count:: correct Disposition/Condition: Pt. tolerated procedure without difficulty. Extubated in the OR and taken to PACU in stable condition.
== END 2022-07-27 13:55 | disposition home or self-care (01) ==
LOC: ER 16:34 → MED/SURG 16:34
PROVIDERS: ADMIT Surgery; ATTEND Surgery
DX: K81.0 Acute cholecystitis; K82.8 Other specified diseases of gallbladder; R10.84 Generalized abdominal pain; J13 Pneumonia due to Streptococcus pneumoniae; E87.6 Hypokalemia; R10.11 Right upper quadrant pain; Z20.822 Contact with and (suspected) exposure to COVID-19

== ENCOUNTER 2022-08-01 08:54 | Observation (INO) ==
[2022-08-01 09:16] VITALS: BMI 32.8
--- NOTE | 2022-08-01 09:33 | DR.ABDMALE ---
HPI Time seen Time Seen by Provider: 08/01/22 09:31 PCP Primary Care Physician: NFD Complaint Chief Complaint:: PT WOKE UP THIS MORNING AT 5AM WITH A CONSTANT SHARP STABBING PAIN IN THE EPIGASTRIC AREA AND STATES THAT IT FEELS LIKE IT'S HARD TO BREATHE. PT COMPLAINS THAT IT HURTS TO TAKE A DEEP BREATH. COVID-19 Coronavirus risk:travel/contact w/high risk person: No Has patient experienced Coronavirus symptoms: No Reviewed Nurses Notes Review: Yes Mode of arrival Mode of Arrival: Ambulatory Timing Onset of Chief Complaint: 08/01/22 Came on: Suddenly Duration Duration: Intermittent Location Location: RUQ Severity Severity: Moderate Quality Quality: Sharp PMH PMH Past Medical History: No Past Surgical History: Yes Surgical History: Appendectomy and Cholecystectomy Family History History of Family Medical Conditions: No Social History Does patient currently use any type of tobacco product: Yes Have you used tobacco products in the last 12 months: Yes Type of Tobacco Use: Cigars Does any household member use tobacco: No Alcohol Use: Rarely Do you use any recreational Drugs:: No Lives With: Family Lives Where: Home Travel Risk Coronavirus risk:travel/contact w/high risk person: No Has patient experienced Coronavirus symptoms: No Infectious screening In the last 2 months have you had wt loss of >10#?: NO Have you had fever, night sweats or hemotysis?: No Have you traveled outside the country in the last 6 months?: No Isolation: Standard ROS Review of Systems Constitutional: No Symptoms Reported Eyes: No Symptoms Reported ENTM: No Symptoms Reported Respiratoy: No Symptoms Reported Cardiovascular: No Symptoms Reported Gastrointestinal/Abdominal: Abdominal Pain Genitourinary: No Symptoms Reported Neurological: No Symptoms Reported Musculoskeletal: No Symptoms Reported Integumentary: No Symptoms Reported Hematologic/Lymphatic: No Symptoms Reported Endocrine: No Symptoms Reported Psychiatric: No Symptoms Reported All Other Systems: Reviewed and Negative PE Vital Signs Vital Signs: Temp Pulse Resp BP BP Pulse Ox O2 Del Method 08/01/22 12:15 72 99 08/01/22 12:00 68 98 08/01/22 12:00 145/73 08/01/22 11:45 66 97 08/01/22 11:30 64 93 L 08/01/22 11:30 137/63 08/01/22 10:31 20 08/01/22 11:15 73 99 08/01/22 11:29 20 08/01/22 11:00 78 100 08/01/22 11:00 138/80 08/01/22 10:53 66 98 08/01/22 10:30 70 98 08/01/22 10:30 134/82 08/01/22 10:30 67 18 134/82 99 Room Air 08/01/22 10:15 67 98 08/01/22 10:06 126/66 08/01/22 10:06 70 99 08/01/22 10:05 99 08/01/22 09:53 68 99 08/01/22 09:53 142/63 08/01/22 10:01 20 08/01/22 09:45 71 99 08/01/22 09:30 79 99 08/01/22 09:30 149/113 08/01/22 09:15 66 99 08/01/22 09:13 65 100 08/01/22 09:11 98.0 F 63 22 116/57 98 Room Air 07/27/22 12:00 121/59 General Limitations: No Limitations General Appearance: Alert and In No Apparent Distress Head Head Exam: Normal Inspection Eyes Eye exam: Normal Appearance ENT ENT Exam: Normal Exam Neck Neck Exam: Normal Inspection Chest Chest Inspection: Normal Inspection Respiratory Respiratory Exam: Normal Lung Sounds Bilat Cardiovascular Cardiovascular Exam: Regular Rate and Normal Rhythm Abdominal Exam Abdominal Exam: Tenderness Abdominal Tenderness: RUQ Rectal Rectal Exam: Deferred Back Back Exam: Normal Inspection Extremeties Extremities Exam: Normal Inspection Exam: Male: Deferred Neurologic Neurological Exam: Alert and Oriented X3 Psychiatric Psychiatric Exam: Normal Affect and Normal Mood Skin Skin Exam: Warm, Dry, Intact and Normal Color COURSE Reevaluation 1st: Improved Consultation Called: 12:27 Consultation Comments: Dr. Mccarthy will admit Education/Counseling Education/Counseling: Education ROR Labs Reviewed Laboratory Results Reviewed?: Yes Result Diagrams: 08/01/22 10:00 08/01/22 10:00 Laboratory: WBC 11.0 X10^3/uL (3.6-10.0) H 08/01/22 10:00 RBC 4.85 X10^6/uL (4.7-6.0) 08/01/22 10:00 Hgb 14.9 g/dL (13.5-18.0) 08/01/22 10:00 Hct 44.4 % (42.0-54.0) 08/01/22 10:00 MCV 91.6 fL (80.0-100.0) 08/01/22 10:00 MCH 30.8 pg (27.0-34.0) 08/01/22 10:00 MCHC 33.6 g/dL (33.0-35.0) 08/01/22 10:00 RDW 13.5 % (11.6-16.5) 08/01/22 10:00 Plt Count 522 X10^3/uL (150.0-450.0) H 08/01/22 10:00 MPV 7.1 fL (7.4-11.0) L 08/01/22 10:00 Neut % (Auto) 83.3 % (42.0-75.0) H 08/01/22 10:00 Lymph % (Auto) 10.3 % (21.0-51.0) L 08/01/22 10:00 [place] % (Auto) 5.4 % (0.0-13.0) 08/01/22 10:00 Eos % (Auto) 0.6 % (0.9-2.9) L 08/01/22 10:00 Baso % (Auto) 0.4 % (0.2-1.0) 08/01/22 10:00 Neut # (Auto) 9.2 x10^3/uL (2.2-4.8) H 08/01/22 10:00 Lymph # (Auto) 1.1 X10^3/uL (1.3-2.9) L 08/01/22 10:00 [place] # (Auto) 0.6 x10^3/uL (0.3-0.8) 08/01/22 10:00 Eos # (Auto) 0.1 x10^3/uL (0.0-0.2) 08/01/22 10:00 Baso # (Auto) 0.0 X10^3/uL (0.0-0.1) 08/01/22 10:00 Absolute Nucleated RBC 0.1 /100WBC 08/01/22 10:00 Sodium 139 mmol/L (136-145) 08/01/22 10:00 Corrected Sodium TNP 08/01/22 10:00 Potassium 4.0 mmol/L (3.5-5.1) 08/01/22 10:00 Chloride 100 mmol/L (98-107) 08/01/22 10:00 Carbon Dioxide 31.6 mmol/L (21-32) 08/01/22 10:00 BUN 9 mg/dL (7-18) 08/01/22 10:00 Creatinine 0.95 mg/dL (0.70-1.30) 08/01/22 10:00 Est GFR (MDRD) Af Amer > 60 (>60) 08/01/22 10:00 Est GFR (MDRD) Non-Af > 60 (>60) 08/01/22 10:00 Glucose 105 mg/dL (65-99) H 08/01/22 10:00 Calcium 8.7 mg/dL (8.5-10.1) 08/01/22 10:00 Corrected Calcium TNP 08/01/22 10:00 Total Bilirubin 0.30 mg/dL (0.2-1.0) 08/01/22 10:00 AST 21 Units/L (15-37) 08/01/22 10:00 ALT 51 Units/L (12-78) 08/01/22 10:00 Alkaline Phosphatase 69 Units/L (46-116) 08/01/22 10:00 Total Protein 7.8 g/dL (6.4-8.2) 08/01/22 10:00 Albumin 3.8 g/dL (3.4-5.0) 08/01/22 10:00 Globulin 4.0 g/dL (2.5-4.5) 08/01/22 10:00 Albumin/Globulin Ratio 1.0 Ratio (1.1-2.1) L 08/01/22 10:00 Lipase 87 Units/L (73-393) 08/01/22 10:00 XRAY XRAY Interpreted by: Radiologist Opioid Opioid Risk Tool Age (Hemant box if 16-45): Yes History of Preadolescent Sexual Abuse: No Total: 1 Total Score Risk Category: Low Risk Copyright: Trent PAN predicting aberrant behaviors Discharge Plan Diagnosis Discharge Problem: Bile leak from gallbladder bed Discharge Plan Patient Disposition: HOME, SELF-CARE Condition: Stable Prescriptions: No Action ciprofloxacin HCl [Cipro] 500 mg tablet 500 mg PO BID Qty: 20 0RF Rx Instructions: 1 TABLET PO BID X 5 DAYS, STARTED ON 07/27/22 oxycodone-acetaminophen [Percocet] 5-325 mg tablet 1 tab PO Q6H MDD 4 PRNQty: 20 0RF Health Concerns: Post Hospitalization: new medications and changes needed to prevent readmission or further decline. Pt educated and given instructions on all concerns. Plan of Treatment: Continue with present treatment and follow up plan. Pt is to keep follow up appointment as instructed and take medications as ordered. Orders to Discharge Patient Discharge Orders: Discharge (Routine); Ordered 08/01/22 Ordered By: Darion Sloan Follow ups/Referrals Follow ups/Referrals: NFD,None [Primary Care Provider] - 3 days
[2022-08-01] MEDS ORDERED: MORPHINE SULFATE INJ 4 MG IVP ONE (09:57)
[2022-08-01] MEDS ORDERED: ZOFRAN INJ 4 MG VIAL IVP ONE (09:57)
[2022-08-01] MEDS ORDERED: MORPHINE SULFATE INJ 4 MG ONE (09:58)
[2022-08-01] MEDS ORDERED: ZOFRAN INJ 4 MG VIAL ONE (09:58)
[2022-08-01 10:23] LABS: BASOPHILS % (AUTO) 0.4 % (0.2-1.0); EOSINOPHILS # (AUTO) 0.1 x10^3/uL (0.0-0.2); EOSINOPHILS % (AUTO) 0.6 % (0.9-2.9); HEMATOCRIT 44.4 % (42.0-54.0); HEMOGLOBIN 14.9 g/dL (13.5-18.0); LYMPHOCYTES # (AUTO) 1.1 X10^3/uL (1.3-2.9); LYMPHOCYTES % (AUTO) 10.3 % (21.0-51.0); MEAN CORPUSCULAR HEMOGLOBIN 30.8 pg (27.0-34.0); MEAN CORPUSCULAR HGB CONC 33.6 g/dL (33.0-35.0); MEAN CORPUSCULAR VOLUME 91.6 fL (80.0-100.0); MEAN PLATELET VOLUME 7.1 fL (7.4-11.0); MONOCYTES # (AUTO) 0.6 x10^3/uL (0.3-0.8); MONOCYTES % (AUTO) 5.4 % (0.0-13.0); NEUTROPHILS # (AUTO) 9.2 x10^3/uL (2.2-4.8); NEUTROPHILS % (AUTO) 83.3 % (42.0-75.0); RED BLOOD COUNT 4.85 X10^6/uL (4.7-6.0); RED CELL DISTRIBUTION WIDTH 13.5 % (11.6-16.5)
[2022-08-01 10:26] LABS: ALANINE AMINOTRANSFERASE 51 Units/L (12-78); ALBUMIN 3.8 g/dL (3.4-5.0); ALKALINE PHOSPHATASE 69 Units/L (46-116); ASPARTATE AMINO TRANSFERASE 21 Units/L (15-37); BLOOD UREA NITROGEN 9 mg/dL (7-18); CALCIUM 8.7 mg/dL (8.5-10.1); CARBON DIOXIDE 31.6 mmol/L (21-32); CHLORIDE 100 mmol/L (98-107); CREATININE 0.95 mg/dL (0.70-1.30); LIPASE 87 Units/L (73-393); SODIUM 139 mmol/L (136-145); TOTAL PROTEIN 7.8 g/dL (6.4-8.2); eGFR NON BLACK RACES > 60 (>60)
--- NOTE | 2022-08-01 10:28 | RAD ---
HISTORYEpigastric pain SOBSTUDYPortable AP chestCOMPARISONNoneFINDINGSHeart size and configuration normal with clear lungs and pleural spaces.IMPRESSIONNormal examination.Electronically signed by: RANI HUFFMAN (Aug 01, 2022 10:27:01)
[2022-08-01] MEDS ORDERED: DILAUDID INJ ONE ×2 (11:24→13:50)
[2022-08-01] MEDS ORDERED: DILAUDID INJ IVP ONE (11:24)
--- NOTE | 2022-08-01 12:10 | CT ---
CT abdomen and pelvis with contrastIndication: Sharp pain and dyspnea. Post gallbladder surgery the previous week. History of pneumonia.COMPARISONApr2022 CTTECHNIQUEHelical images through the abdomen and pelvis without contrast. Coronal and sagittal reformats provided.FINDINGS: Limited images through the lower chest show no acute abnormality. Review of bone windows shows no osseous lesionAbdomen: Trace fluid seen anterior to the liver. Cholecystectomy clips noted, with a drain entering from the right abdomen, tip near the gallbladder fossa on axial image 24. Near the cholecystectomy site, there is gas and fluid collection on axial images 23-28 and on coronal image 19 through 26. This measures 3.8 x 3.8 x 2.8 cm on axial image 25 and coronal image 23 (AP, trans, cc). There is surrounding stranding.The stomach and duodenum are normal. Common bile duct does not appear to be dilated. Pancreas and adrenal glands are normal. The spleen is normal. The kidneys are normal. Vasculature is normal. Stomach and small bowel are normal. No acute colonic abnormality identified. Appendix is not well visualized. There is stranding in the anterior abdomen just below the umbilicus, presumably a port site.Pelvis: Urinary bladder and rectum are normal. Prostate gland is normal.IMPRESSION:1. Drain tip near the collection but not definitely within the collection in the right upper quadrant at the cholecystectomy bed with small amount of gas and surrounding stranding. Biliary leak cannot be excluded, with small amount of fluid seen anterior to the liver. Small abscess is possible as well. Follow-up to resolution.2. No other acute abnormality seen.Electronically signed by: MANA JAY (Aug 01, 2022 12:10:02)
[2022-08-01] MEDS ORDERED: NS 1,000 ML IV 1,000 ML ONE (13:51)
[2022-08-01] MEDS: NS 1,000 ML IV 1,000 ML IV SCH ×3 (13:58→22:53)
[2022-08-01] MEDS: DILAUDID INJ IVP PRN ×3 (13:58→21:32)
--- NOTE | 2022-08-01 15:40 | DR.H&P ---
H&P History & Physical for Day of: H&P Date: 08/01/22 Chief Complaint Chief Complaint: Right upper quadrant pain Allergies Allergies Allergy/AdvReac Type Severity Reaction Status Date / Time Penicillins Allergy Verified 07/24/22 18:09 History of Present Illness History of Present Illness: 32 year old male status post laparoscopic cholecystectomy approximately one week ago. Discharge home with Win Lai drain in place. Returned to the emergency room complaining of abdominal pain. White blood cell count mildly elevated. No fever. Liver function tests than n ormal limits. CT scan shows fluid collection in the liver bed. Drain does not reach this collection. Past Surgical History Surgical History: Appendectomy and Cholecystectomy Social History Does patient currently use any type of tobacco product: Yes Have you used tobacco products in the last 12 months: Yes Type of Tobacco Use: Cigars Does any household member use tobacco: No Alcohol Use: Occasionally Drug Use: None Medications Home Medications: Penicillins Allergy (Verified 07/24/22 18:09) Cipro Percocet Labs Result Diagrams: 08/01/22 10:00 08/01/22 10:00 Labs: Laboratory WBC 11.0 X10^3/uL (3.6-10.0) H 08/01/22 10:00 RBC 4.85 X10^6/uL (4.7-6.0) 08/01/22 10:00 Hgb 14.9 g/dL (13.5-18.0) 08/01/22 10:00 Hct 44.4 % (42.0-54.0) 08/01/22 10:00 MCV 91.6 fL (80.0-100.0) 08/01/22 10:00 MCH 30.8 pg (27.0-34.0) 08/01/22 10:00 MCHC 33.6 g/dL (33.0-35.0) 08/01/22 10:00 RDW 13.5 % (11.6-16.5) 08/01/22 10:00 Plt Count 522 X10^3/uL (150.0-450.0) H 08/01/22 10:00 MPV 7.1 fL (7.4-11.0) L 08/01/22 10:00 Neut % (Auto) 83.3 % (42.0-75.0) H 08/01/22 10:00 Lymph % (Auto) 10.3 % (21.0-51.0) L 08/01/22 10:00 Amite % (Auto) 5.4 % (0.0-13.0) 08/01/22 10:00 Eos % (Auto) 0.6 % (0.9-2.9) L 08/01/22 10:00 Baso % (Auto) 0.4 % (0.2-1.0) 08/01/22 10:00 Neut # (Auto) 9.2 x10^3/uL (2.2-4.8) H 08/01/22 10:00 Lymph # (Auto) 1.1 X10^3/uL (1.3-2.9) L 08/01/22 10:00 [place]ite # (Auto) 0.6 x10^3/uL (0.3-0.8) 08/01/22 10:00 Eos # (Auto) 0.1 x10^3/uL (0.0-0.2) 08/01/22 10:00 Baso # (Auto) 0.0 X10^3/uL (0.0-0.1) 08/01/22 10:00 Absolute Nucleated RBC 0.1 /100WBC 08/01/22 10:00 Sodium 139 mmol/L (136-145) 08/01/22 10:00 Corrected Sodium TNP 08/01/22 10:00 Potassium 4.0 mmol/L (3.5-5.1) 08/01/22 10:00 Chloride 100 mmol/L (98-107) 08/01/22 10:00 Carbon Dioxide 31.6 mmol/L (21-32) 08/01/22 10:00 BUN 9 mg/dL (7-18) 08/01/22 10:00 Creatinine 0.95 mg/dL (0.70-1.30) 08/01/22 10:00 Est GFR (MDRD) Af Amer > 60 (>60) 08/01/22 10:00 Est GFR (MDRD) Non-Af > 60 (>60) 08/01/22 10:00 Glucose 105 mg/dL (65-99) H 08/01/22 10:00 Calcium 8.7 mg/dL (8.5-10.1) 08/01/22 10:00 Corrected Calcium TNP 08/01/22 10:00 Total Bilirubin 0.30 mg/dL (0.2-1.0) 08/01/22 10:00 AST 21 Units/L (15-37) 08/01/22 10:00 ALT 51 Units/L (12-78) 08/01/22 10:00 Alkaline Phosphatase 69 Units/L (46-116) 08/01/22 10:00 Total Protein 7.8 g/dL (6.4-8.2) 08/01/22 10:00 Albumin 3.8 g/dL (3.4-5.0) 08/01/22 10:00 Globulin 4.0 g/dL (2.5-4.5) 08/01/22 10:00 Albumin/Globulin Ratio 1.0 Ratio (1.1-2.1) L 08/01/22 10:00 Lipase 87 Units/L (73-393) 08/01/22 10:00 LFTs LFTs WNL Review of Systems Constitutional: See HPI Eyes: No Symptoms Reported ENT: No Symptoms Reported Respiratory: No Symptoms Reported Cardiovascular: No Symptoms Reported Gastrointestinal: See HPI Genitourinary: No Symptoms Reported Musculoskeletal: No Symptoms Reported Skin: No Symptoms Reported Neurological: No Symptoms Reported Physical Exam Vital Signs: Temperature 97.7 F Pulse Rate [Left Radial] 74 Pulse Rate 72 Respiratory Rate 20 Blood Pressure [Right Arm] 137/77 Blood Pressure 145/73 O2 Sat by Pulse Oximetry 99 Oriented: Normal, Time, Person and Place Eyes: Normal Ear: Normal Nose: Normal Throat: Normal Respiratory: Clear Throughout Cardiovascular: Normal : Normal Auscultation: Bowel Sounds: Normal Palpation: Normal Tenderness: RUQ (mild) Skin: Normal Musculoskeletal: Normal Psychiatric: Normal Mood Description: Calm Affect: Normal Speech Pattern: Clear Assessment/Plan (1) Gall bladder disease: Narrative Support Text: Possible bile leak Status: Acute Plan: Admit, IV antibiotics, HIDA scan Review H&P Reviewed: Yes
[2022-08-01] MEDS: CIPRO IV 400 MG PREMIX* 400 MG/200 ML IV.SOLN. IV SCH (20:10)
[2022-08-02] MEDS: DILAUDID INJ IVP PRN ×3 (00:15→17:01)
[2022-08-02 05:12] LABS: BASOPHILS # (AUTO) 0.1 X10^3/uL (0.0-0.1); BASOPHILS % (AUTO) 0.9 % (0.2-1.0); EOSINOPHILS % (AUTO) 0.5 % (0.9-2.9); HEMATOCRIT 40.8 % (42.0-54.0); LYMPHOCYTES # (AUTO) 1.1 X10^3/uL (1.3-2.9); LYMPHOCYTES % (AUTO) 10.2 % (21.0-51.0); MEAN CORPUSCULAR HEMOGLOBIN 31.1 pg (27.0-34.0); MEAN CORPUSCULAR HGB CONC 34.3 g/dL (33.0-35.0); MEAN CORPUSCULAR VOLUME 90.6 fL (80.0-100.0); MEAN PLATELET VOLUME 7.2 fL (7.4-11.0); MONOCYTES # (AUTO) 1.3 x10^3/uL (0.3-0.8); MONOCYTES % (AUTO) 11.7 % (0.0-13.0); NEUTROPHILS # (AUTO) 8.4 x10^3/uL (2.2-4.8); NEUTROPHILS % (AUTO) 76.7 % (42.0-75.0); RED BLOOD COUNT 4.51 X10^6/uL (4.7-6.0); RED CELL DISTRIBUTION WIDTH 13.5 % (11.6-16.5); WHITE BLOOD COUNT 10.9 X10^3/uL (3.6-10.0)
[2022-08-02 05:24] LABS: ALANINE AMINOTRANSFERASE 47 Units/L (12-78); ALBUMIN 3.2 g/dL (3.4-5.0); ALKALINE PHOSPHATASE 62 Units/L (46-116); ASPARTATE AMINO TRANSFERASE 25 Units/L (15-37); BLOOD UREA NITROGEN 5 mg/dL (7-18); CALCIUM 8.2 mg/dL (8.5-10.1); CARBON DIOXIDE 30.9 mmol/L (21-32); CHLORIDE 99 mmol/L (98-107); COR CA(FOR HYPOALB) 8.8 mg/dL (8.5-10.1); COR NA(FOR HYPERGLY) 136 mmol/L (136-145); CREATININE 0.74 mg/dL (0.70-1.30); SODIUM 136 mmol/L (136-145); TOTAL PROTEIN 6.8 g/dL (6.4-8.2); eGFR NON BLACK RACES > 60 (>60)
[2022-08-02] MEDS: NS 1,000 ML IV 1,000 ML IV SCH ×4 (05:34→20:41)
[2022-08-02] MEDS: CIPRO IV 400 MG PREMIX* 400 MG/200 ML IV.SOLN. IV SCH ×2 (08:19→20:41)
[2022-08-02] MEDS ORDERED: DILAUDID INJ ONE (12:59)
[2022-08-02] MEDS ORDERED: DILAUDID INJ IVP ONE (13:01)
--- NOTE | 2022-08-02 13:04 | NM ---
HIDA/HEPATOBILIARY SCAN W/O EFHISTORY: S/P CHOLECYSTECTOMY, ABDOMINAL PAIN, POSSIBLE BILE LEAKComparison:NoneTechnique: Multiple scintigraphic images of the abdomen were obtained the intravenous administration of [5.6] mCi of technetium labeled Choletec.Findings:Homogeneous uptake of radiotracer is seen throughout the liver. The intrabiliary ductal system is observed normally. The common hepatic and common bile duct appear unremarkable with normal biliary-bowel transit. No free radiotracer can see be seen in the abdomen.IMPRESSION:No evidence of bile leak.Electronically signed by: TERI PEREYRA (Aug 02, 2022 13:03:05)
--- NOTE | 2022-08-02 13:31 | EKG ---
Test Reason : chest pain Blood Pressure : */* mmHG Vent. Rate : 85 BPM Atrial Rate : 85 BPM P-R Int : 136 ms QRS Dur : 106 ms QT Int : 362 ms P-R-T Axes : 65 25 56 degrees QTc Int : 430 ms Normal sinus rhythm with sinus arrhythmia Incomplete right bundle branch block Borderline ECG No previous ECGs available Confirmed by Sulaiman Manriquez ([id number]) on 08/04/2022 8:09:07 AM Referred By: Confirmed By: Sulaiman Manriquez
[2022-08-02] MEDS ORDERED: PERCOCET TAB 5/325 MG ONE (17:31)
[2022-08-02] MEDS: PERCOCET TAB 5/325 MG PO PRN ×2 (17:36→23:52)
--- NOTE | 2022-08-02 23:34 | NOTE.SOAP ---
Soap Note Note for Day of Date of Exam: 08/02/22 Subjective Data Subjective Data: HD #1 after admission for pain control s/p laparoscopic cholecystectomy last week. HAd HIDA scan earlier today Objective Data Temperature: 98.6 F Pulse Rate: 70 Respiratory Rate: 18 Blood Pressure: 114/58 O2 Sat by Pulse Oximetry: 100 Objective Data: Abdomen is soft .No obvious tenderness.JEANETTE drain with sero-sanguineous output. HIDA scan shows no leak. Assessment Assessment: S/p laparoscopic cholecystectomy. No leak. C/O pain earlier today requiring IV dilaudid Plan Plan: Remove drain tomorrow . Probably d/c home.
[2022-08-03] MEDS: NS 1,000 ML IV 1,000 ML IV SCH (05:16)
[2022-08-03] MEDS: PERCOCET TAB 5/325 MG PO PRN (08:16)
[2022-08-03] MEDS: CIPRO IV 400 MG PREMIX* 400 MG/200 ML IV.SOLN. IV SCH (08:19)
--- NOTE | 2022-08-03 12:40 | W.DIS.FURT ---
Summary of Discharge Discharge Summary of Date Date of Exam: 08/03/22 Admission Date Date of Admission: 08/01/22 Admission Diagnosis Patient Problems (Updated 08/03/22 @ 12:39 by Balwinder Mccarthy) Bile leak from gallbladder bed (Acute) K83.8 no evidence of leak, this was admitting diagnosis proven wrong Hospital Course: This 32 year old male is status post laparoscopic cholecystectomy for cholecysti tis on July 29. He was discharged home with a Win Lai drain in place. He returned to the ER on August 01 c/o quadrant pain. CT scan showed area of fluid in the gallbladder fossa as expected especially since Sugicel is there. The drain did not reach this area but in Caldwell's pouch draining sero- sanguineous fluid. He was admitted for the possibility of a bile leak and pain control. LFTs were WNL .HIDA scan showed no leak. JEANETTE drain has been discontinued. He has had some spasms and I am unsure as to why. He will be discharged home on Percocet, 5 mg tablets, 1 q6 HR PRN Pain and follow up with me in one week. Vital Signs: Vital Signs (72 hours) 08/02/22 23:34 08/01/22 09:11 08/01/22 09:13 Temperature 98.6 F 98.0 F Pulse Rate 70 63 65 Pulse Rate [Left Radial] Respiratory Rate 18 22 Blood Pressure 114/58 116/57 Blood Pressure [Left Arm] Blood Pressure [Right Arm] O2 Sat by Pulse Oximetry 100 98 100 Oxygen Delivery Method Room Air Oxygen Flow Rate FIO2% 08/01/22 09:15 08/01/22 09:30 08/01/22 09:30 Temperature Pulse Rate 66 79 Pulse Rate [Left Radial] Respiratory Rate Blood Pressure 149/113 Blood Pressure [Left Arm] Blood Pressure [Right Arm] O2 Sat by Pulse Oximetry 99 99 Oxygen Delivery Method Oxygen Flow Rate FIO2% 08/01/22 09:45 08/01/22 10:01 08/01/22 09:53 Temperature Pulse Rate 71 Pulse Rate [Left Radial] Respiratory Rate 20 Blood Pressure 142/63 Blood Pressure [Left Arm] Blood Pressure [Right Arm] O2 Sat by Pulse Oximetry 99 Oxygen Delivery Method Oxygen Flow Rate FIO2% 08/01/22 09:53 08/01/22 10:05 08/01/22 10:06 Temperature Pulse Rate 68 70 Pulse Rate [Left Radial] Respiratory Rate Blood Pressure Blood Pressure [Left Arm] Blood Pressure [Right Arm] O2 Sat by Pulse Oximetry 99 99 99 Oxygen Delivery Method Oxygen Flow Rate FIO2% 08/01/22 10:06 08/01/22 10:15 08/01/22 10:30 Temperature Pulse Rate 67 67 Pulse Rate [Left Radial] Respiratory Rate 18 Blood Pressure 126/66 134/82 Blood Pressure [Left Arm] Blood Pressure [Right Arm] O2 Sat by Pulse Oximetry 98 99 Oxygen Delivery Method Room Air Oxygen Flow Rate FIO2% 08/01/22 10:30 08/01/22 10:30 08/01/22 10:53 Temperature Pulse Rate 70 66 Pulse Rate [Left Radial] Respiratory Rate Blood Pressure 134/82 Blood Pressure [Left Arm] Blood Pressure [Right Arm] O2 Sat by Pulse Oximetry 98 98 Oxygen Delivery Method Oxygen Flow Rate FIO2% 08/01/22 11:00 08/01/22 11:00 08/01/22 11:29 Temperature Pulse Rate 78 Pulse Rate [Left Radial] Respiratory Rate 20 Blood Pressure 138/80 Blood Pressure [Left Arm] Blood Pressure [Right Arm] O2 Sat by Pulse Oximetry 100 Oxygen Delivery Method Oxygen Flow Rate FIO2% 08/01/22 11:15 08/01/22 10:31 08/01/22 11:30 Temperature Pulse Rate 73 Pulse Rate [Left Radial] Respiratory Rate 20 Blood Pressure 137/63 Blood Pressure [Left Arm] Blood Pressure [Right Arm] O2 Sat by Pulse Oximetry 99 Oxygen Delivery Method Oxygen Flow Rate FIO2% 08/01/22 11:30 08/01/22 11:45 08/01/22 12:00 Temperature Pulse Rate 64 66 Pulse Rate [Left Radial] Respiratory Rate Blood Pressure 145/73 Blood Pressure [Left Arm] Blood Pressure [Right Arm] O2 Sat by Pulse Oximetry 93 L 97 Oxygen Delivery Method Oxygen Flow Rate FIO2% 08/01/22 12:00 08/01/22 12:15 08/01/22 12:59 Temperature Pulse Rate 68 72 Pulse Rate [Left Radial] Respiratory Rate 20 Blood Pressure Blood Pressure [Left Arm] Blood Pressure [Right Arm] O2 Sat by Pulse Oximetry 98 99 Oxygen Delivery Method Oxygen Flow Rate FIO2% 08/01/22 13:05 08/01/22 13:16 08/01/22 13:58 Temperature 97.7 F Pulse Rate Pulse Rate [Left Radial] 74 Respiratory Rate 20 20 Blood Pressure Blood Pressure [Left Arm] Blood Pressure [Right Arm] 137/77 O2 Sat by Pulse Oximetry 99 Oxygen Delivery Method Room Air Room Air Oxygen Flow Rate FIO2% 08/01/22 13:17 08/01/22 14:28 08/01/22 16:00 Temperature 98.4 F Pulse Rate Pulse Rate [Left Radial] 62 Respiratory Rate 20 20 Blood Pressure Blood Pressure [Left Arm] Blood Pressure [Right Arm] 147/79 O2 Sat by Pulse Oximetry 97 Oxygen Delivery Method Room Air Room Air Oxygen Flow Rate FIO2% 08/01/22 19:00 08/01/22 20:00 08/01/22 20:10 Temperature 99.2 F Pulse Rate Pulse Rate [Left Radial] 69 Respiratory Rate 18 18 Blood Pressure Blood Pressure [Left Arm] Blood Pressure [Right Arm] 124/76 O2 Sat by Pulse Oximetry 98 Oxygen Delivery Method Room Air Room Air Oxygen Flow Rate FIO2% 08/01/22 20:40 08/02/22 00:00 08/02/22 00:15 Temperature 98.6 F Pulse Rate Pulse Rate [Left Radial] 72 Respiratory Rate 18 20 14 Blood Pressure Blood Pressure [Left Arm] Blood Pressure [Right Arm] 128/78 O2 Sat by Pulse Oximetry 98 Oxygen Delivery Method Room Air Oxygen Flow Rate FIO2% 08/02/22 00:45 08/01/22 21:37 08/02/22 04:00 Temperature 99.6 F Pulse Rate Pulse Rate [Left Radial] 75 Respiratory Rate 14 20 Blood Pressure Blood Pressure [Left Arm] Blood Pressure [Right Arm] 119/69 O2 Sat by Pulse Oximetry 95 Oxygen Delivery Method Room Air Room Air Oxygen Flow Rate FIO2% 08/02/22 07:00 08/02/22 08:49 08/02/22 08:00 Temperature 98.5 F Pulse Rate Pulse Rate [Left Radial] 80 Respiratory Rate 18 Blood Pressure Blood Pressure [Left Arm] Blood Pressure [Right Arm] 119/61 O2 Sat by Pulse Oximetry 96 Oxygen Delivery Method Room Air Room Air Room Air Oxygen Flow Rate FIO2% 08/02/22 12:00 08/02/22 12:14 08/02/22 12:44 Temperature 98.8 F Pulse Rate Pulse Rate [Left Radial] 74 Respiratory Rate 18 18 18 Blood Pressure Blood Pressure [Left Arm] Blood Pressure [Right Arm] 117/64 O2 Sat by Pulse Oximetry 98 Oxygen Delivery Method Room Air Oxygen Flow Rate FIO2% 08/02/22 13:10 08/02/22 13:40 08/02/22 16:00 Temperature 97.9 F Pulse Rate Pulse Rate [Left Radial] 62 Respiratory Rate 22 18 18 Blood Pressure Blood Pressure [Left Arm] Blood Pressure [Right Arm] 137/82 O2 Sat by Pulse Oximetry 100 Oxygen Delivery Method Room Air Oxygen Flow Rate FIO2% 08/02/22 17:01 08/02/22 17:36 08/02/22 17:31 Temperature Pulse Rate Pulse Rate [Left Radial] Respiratory Rate 22 20 22 Blood Pressure Blood Pressure [Left Arm] Blood Pressure [Right Arm] O2 Sat by Pulse Oximetry Oxygen Delivery Method Oxygen Flow Rate FIO2% 08/02/22 19:55 08/02/22 19:00 08/02/22 20:42 Temperature 98.6 F Pulse Rate Pulse Rate [Left Radial] 70 Respiratory Rate 18 18 Blood Pressure Blood Pressure [Left Arm] 114/55 Blood Pressure [Right Arm] O2 Sat by Pulse Oximetry 100 Oxygen Delivery Method Room Air Room Air Oxygen Flow Rate FIO2% 08/02/22 23:40 08/02/22 23:52 08/03/22 00:52 Temperature 98.6 F Pulse Rate Pulse Rate [Left Radial] 56 L Respiratory Rate 18 18 18 Blood Pressure Blood Pressure [Left Arm] 145/69 Blood Pressure [Right Arm] O2 Sat by Pulse Oximetry 100 Oxygen Delivery Method Room Air Oxygen Flow Rate FIO2% 08/02/22 21:26 08/03/22 04:00 08/03/22 08:16 Temperature 98.9 F Pulse Rate Pulse Rate [Left Radial] 61 Respiratory Rate 18 18 Blood Pressure Blood Pressure [Left Arm] 116/54 Blood Pressure [Right Arm] O2 Sat by Pulse Oximetry 100 Oxygen Delivery Method Room Air Room Air Oxygen Flow Rate FIO2% 08/03/22 08:31 08/03/22 07:50 08/03/22 09:58 Temperature Pulse Rate Pulse Rate [Left Radial] Respiratory Rate 18 Blood Pressure Blood Pressure [Left Arm] Blood Pressure [Right Arm] O2 Sat by Pulse Oximetry Oxygen Delivery Method Nasal Cannula Nasal Cannula Oxygen Flow Rate 2 2 FIO2% 28 Labs: Laboratory Last Values WBC 10.9 X10^3/uL (3.6-10.0) H 08/02/22 04:55 RBC 4.51 X10^6/uL (4.7-6.0) L 08/02/22 04:55 Hgb 14.0 g/dL (13.5-18.0) 08/02/22 04:55 Hct 40.8 % (42.0-54.0) L 08/02/22 04:55 MCV 90.6 fL (80.0-100.0) 08/02/22 04:55 MCH 31.1 pg (27.0-34.0) 08/02/22 04:55 MCHC 34.3 g/dL (33.0-35.0) 08/02/22 04:55 RDW 13.5 % (11.6-16.5) 08/02/22 04:55 Plt Count 479 X10^3/uL (150.0-450.0) H 08/02/22 04:55 MPV 7.2 fL (7.4-11.0) L 08/02/22 04:55 Neut % (Auto) 76.7 % (42.0-75.0) H 08/02/22 04:55 Lymph % (Auto) 10.2 % (21.0-51.0) L 08/02/22 04:55 Barry % (Auto) 11.7 % (0.0-13.0) 08/02/22 04:55 Eos % (Auto) 0.5 % (0.9-2.9) L 08/02/22 04:55 Baso % (Auto) 0.9 % (0.2-1.0) 08/02/22 04:55 Neut # (Auto) 8.4 x10^3/uL (2.2-4.8) H 08/02/22 04:55 Lymph # (Auto) 1.1 X10^3/uL (1.3-2.9) L 08/02/22 04:55 Barry # (Auto) 1.3 x10^3/uL (0.3-0.8) H 08/02/22 04:55 Eos # (Auto) 0.0 x10^3/uL (0.0-0.2) 08/02/22 04:55 Baso # (Auto) 0.1 X10^3/uL (0.0-0.1) 08/02/22 04:55 Absolute Nucleated RBC 0.0 /100WBC 08/02/22 04:55 Sodium 136 mmol/L (136-145) 08/02/22 04:55 Corrected Sodium 136 mmol/L (136-145) 08/02/22 04:55 Potassium 4.0 mmol/L (3.5-5.1) 08/02/22 04:55 Chloride 99 mmol/L (98-107) 08/02/22 04:55 Carbon Dioxide 30.9 mmol/L (21-32) 08/02/22 04:55 BUN 5 mg/dL (7-18) L 08/02/22 04:55 Creatinine 0.74 mg/dL (0.70-1.30) 08/02/22 04:55 Est GFR (MDRD) Af Amer > 60 (>60) 08/02/22 04:55 Est GFR (MDRD) Non-Af > 60 (>60) 08/02/22 04:55 Glucose 111 mg/dL (65-99) H 08/02/22 04:55 Calcium 8.2 mg/dL (8.5-10.1) L 08/02/22 04:55 Corrected Calcium 8.8 mg/dL (8.5-10.1) 08/02/22 04:55 Total Bilirubin 0.70 mg/dL (0.2-1.0) 08/02/22 04:55 AST 25 Units/L (15-37) 08/02/22 04:55 ALT 47 Units/L (12-78) 08/02/22 04:55 Alkaline Phosphatase 62 Units/L (46-116) 08/02/22 04:55 Total Protein 6.8 g/dL (6.4-8.2) 08/02/22 04:55 Albumin 3.2 g/dL (3.4-5.0) L 08/02/22 04:55 Globulin 3.6 g/dL (2.5-4.5) 08/02/22 04:55 Albumin/Globulin Ratio 0.9 Ratio (1.1-2.1) L 08/02/22 04:55 Lipase 87 Units/L (73-393) 08/01/22 10:00 Reason For Visit: PAIN IN ABDOMEN, POST SURGERY Discharge Date Discharge Date: 08/03/22 Discharge Diagnosis All Active Problems (Updated 08/03/22 @ 12:39 by Balwinder Mccarthy) Bile leak from gallbladder bed (Acute) Gall bladder disease (Acute) Abdominal pain (Acute) Hypokalemia (Acute) Pneumonia (Acute) Plan of Treatment: Continue with present treatment and follow up plan. Pt is to keep follow up appointment as instructed and take medications as ordered. Discharge Medications Discharge Medications: Penicillins Allergy (Verified 07/24/22 18:09) Discharge Disposition Assessment: No acute distress noted at time of discharge. Discharge Plan Discharge Plan Hospital Course: This 32 year old male is status post laparoscopic cholecystectomy for cholecystitis on July 29. He was discharged home with a Win Lai drain in place. He returned to the ER on August 01 c/o quadrant pain. CT scan showed area of fluid in the gallbladder fossa as expected especially since Sugicel is there. The drain did not reach this area but in Caldwell's pouch draining sero-sanguineous fluid. He was admitted for the possibility of a bile leak and pain control. LFTs were WNL .HIDA scan showed no leak. JEANETTE drain has been discontinued. He has had some spasms and I am unsure as to why. He will be discharged home on Percocet, 5 mg tablets, 1 q6 HR PRN Pain and follow up with me in one week. Patient Disposition: 01 HOME, SELF-CARE Condition: Stable Health Concerns: Post Hospitalization: new medications and changes needed to prevent readmission or further decline. Pt educated and given instructions on all concerns. Care Plan Goals: Problem: Pain/Alteration in Comfort Goal: Improve/ Resolve Pain; Achieve Pain Tolerance Instructions: Take pain medications as prescribed. Contact your primary care provider if your pain is unrelieved or worsens. Follow up with primary care provider as directed. Plan of Treatment: Continue with present treatment and follow up plan. Pt is to keep follow up appointment as instructed and take medications as ordered. Assessment: No acute distress noted at time of discharge. Prescriptions: No Action ciprofloxacin HCl [Cipro] 500 mg tablet 500 mg PO BID Qty: 20 0RF Rx Instructions: 1 TABLET PO BID X 5 DAYS, STARTED ON 07/27/22 oxycodone-acetaminophen [Percocet] 5-325 mg tablet 1 tab PO Q6H MDD 4 PRNQty: 20 0RF Orders to Discharge Patient Discharge Orders: Discharge (Routine); Ordered 08/03/22 Ordered By: Balwinder Mccarthy Follow ups/Referrals Follow ups/Referrals: NFMichael,None [Primary Care Provider] - 3 days Balwinder Mccarthy [STAFF PHYSICIAN] - 08/04/22 1:30 pm Instructions Instructions: Antibiotic Medicine, Adult, [id number], Abdominal Pain, Adult, [id number], How to Change Your Wound Dressing, [id number], You've Been Prescribed an Antibiotic in the Hospital for an Infection - CDC, Preventing Problems After Surgery
[2022-08-03 13:51] VITALS: BP 134/72
== END 2022-08-03 15:54 | disposition home or self-care (01) ==
LOC: ER 08:54 → MED/SURG 08:54
PROVIDERS: ADMIT Surgery; ATTEND Surgery
DX: R10.11 Right upper quadrant pain; Z90.49 Acquired absence of other specified parts of digestive tract; R06.02 Shortness of breath; R10.13 Epigastric pain